=== PATIENT | female | born 1950 | race Caucasian/White ===

== ENCOUNTER 2019-05-18 15:22 | Inpatient (IN) | payer BC, OTHER ==
[~2019-05-18] VITALS: Ht 175.3 cm; Wt 78.7 kg
[2019-05-18] MEDS ORDERED: IPRATROPIUM BROM 0.5 MG/2.5ML INH SOL HHN ONE (16:00)
[2019-05-18] MEDS ORDERED: ALBUTEROL SULF 2.5 MG/0.5ML(0.5%) NEB SOLN HHN ONE (16:00)
[2019-05-18] MEDS ORDERED: methylPREDNISolone SOD SUCC 125 MG/2 ML VL IV ONE (16:00)
[2019-05-18 17:28] LABS: Basophils # (auto) 0 uL; Basophils % (auto) 0.2 % (0.0-2.0); Eosinophils # (auto) 0 uL; Eosinophils % (auto) 0.2 % (0.0-7.0); Hematocrit 43.1 % (36.0-46.0); Hemoglobin 14.3 g/dL (12.2-16.2); Lymphocytes # (auto) 0.9 uL; Lymphocytes % (auto) 16.1 % (10.0-50.0); Mean Corpuscular Hemoglobin 28.8 pg (28.0-32.0); Mean Corpuscular Hgb Conc. 33.3 g/dL (32.0-36.0); Mean Corpuscular Volume 86.4 fL (80.0-100.0); Monocytes # (auto) 0.4 uL; Monocytes % (auto) 8.2 % (0.0-12.0); Neutrophils # (auto) 4.1 uL; Neutrophils % (auto) 75.3 % (37.0-80.0); Nucleated Red Blood Cells % 0.1 %; Platelet Count (auto) 376 10^3/uL (140-450); Red Blood Cells 4.99 10^6/uL (4.0-5.20); Red Cell Distribution Width 14.6 % (11.8-14.3); White Blood Cell 5.5 10^3/uL (4.4-10.8)
[2019-05-18 17:37] LABS: Albumin 3.4 g/dL (3.4-5.0); Calcium 8.9 mg/dL (8.5-10.1)
[2019-05-18 17:42] LABS: BUN/Creatinine Ratio 18.6; Bilirubin, Total 0.4 mg/dL (0.2-1.0); Total Protein 7.5 g/dL (6.4-8.2)
[2019-05-18 17:51] LABS: Potassium 2.7 mmol/L (3.5-5.1)
[2019-05-18] MEDS ORDERED: POTASSIUM CHL 20MEQ/100ML 100 ML IV ONE (18:00)
[2019-05-18] MEDS ORDERED: cefTRIAXone 1GM/50ML D5W 50 ML IV ONE (20:00)
[2019-05-18] MEDS ORDERED: AZITHROMYCIN 500MG/ 250ML 250 ML IV ONE (20:00)
[2019-05-18] MEDS ORDERED: SODIUM CHLORIDE 0.9% 1,000 ML IV SCH (20:18)
[2019-05-18] MEDS ORDERED: LACTULOSE 20Gm/30ML SOLN PO PRN (20:30)
[2019-05-18] MEDS ORDERED: ALBUTEROL SULF 2.5 MG/0.5ML(0.5%) NEB SOLN NEB PRN (20:30)
[2019-05-18] MEDS ORDERED: NITROGLYCERIN 0.4 MG SL TAB SL PRN (20:30)
[2019-05-18] MEDS ORDERED: OSELTAMIVIR 75 MG CAP PO ONE (20:30)
[2019-05-18] MEDS ORDERED: MORPHINE SULF INJ 2 MG/ML SYRINGE 1ML IV PRN (20:30)
[2019-05-18] MEDS ORDERED: POTASSIUM EFFERVESENT TAB 25 MEQ PO ONE (20:45)
[2019-05-18] MEDS ORDERED: PROMETHAZINE HCL 25 MG/ML 1ML IV PRN (20:45)
[2019-05-18] MEDS ORDERED: SOD CHL 0.9%/ KCL 40MEQ 1,000 ML IV SCH (20:45)
[2019-05-18] MEDS ORDERED: traMADol HCL 50 MG TAB PO PRN (20:45)
[2019-05-18] MEDS ORDERED: ONDANSETRON HCL 4 MG/2 ML VIAL IV PRN (20:45)
[2019-05-18] MEDS ORDERED: ACETAMINOPHEN 500 MG TAB PO PRN (20:45)
[2019-05-18 21:58] VITALS: BP 118/78
[2019-05-18] MEDS: methylPREDNISolone SOD SUCC 40 MG/ML VL IV SCH (22:00)
[2019-05-18] MEDS: OSELTAMIVIR 75 MG CAP PO SCH (22:00)
[2019-05-18 23:28] VITALS: BP 139/89
[2019-05-18] MEDS: FAMOTIDINE 20 MG TAB PO SCH (23:37)
[2019-05-18] MEDS ORDERED: LISI40TA PO (23:56)
[2019-05-18] MEDS ORDERED: CHOL20007 PO (23:56)
[2019-05-18] MEDS ORDERED: ALBUAER3 IN (23:56)
[2019-05-18] MEDS ORDERED: MULT-688 PO (23:56)
[2019-05-18] MEDS ORDERED: HYDR-4069 PO (23:56)
[2019-05-18] MEDS ORDERED: HCTZ25T PO (23:56)
[2019-05-18] MEDS ORDERED: MONT10TA34 PO (23:56)
[2019-05-18] MEDS ORDERED: FORM1POW2 INH (23:56)
[2019-05-19] MEDS: IPRATROPIUM BROM 0.5 MG/2.5ML INH SOL NEB SCH ×4 (00:13→18:55)
[2019-05-19] MEDS: ALBUTEROL SULF 2.5 MG/0.5ML(0.5%) NEB SOLN NEB SCH ×4 (00:13→18:56)
[2019-05-19 05:00] VITALS: BP 106/66
[2019-05-19 08:00] LABS: Basophils # (auto) 0 uL; Basophils % (auto) 0.5 % (0.0-2.0); Eosinophils # (auto) 0 uL; Hematocrit 38.4 % (36.0-46.0); Hemoglobin 13.1 g/dL (12.2-16.2); Lymphocytes # (auto) 0.5 uL; Mean Corpuscular Hemoglobin 29.4 pg (28.0-32.0); Mean Corpuscular Volume 86.4 fL (80.0-100.0); Monocytes # (auto) 0.2 uL; Monocytes % (auto) 5.2 % (0.0-12.0); Neutrophils # (auto) 3.3 uL; Neutrophils % (auto) 82.3 % (37.0-80.0); Nucleated Red Blood Cells % 0.1 %; Platelet Count (auto) 339 10^3/uL (140-450); Red Blood Cells 4.45 10^6/uL (4.0-5.20); Red Cell Distribution Width 14.4 % (11.8-14.3); White Blood Cell 4.1 10^3/uL (4.4-10.8)
[2019-05-19 08:20] LABS: Albumin 2.8 g/dL (3.4-5.0); Potassium 3.4 mmol/L (3.5-5.1)
[2019-05-19 08:22] LABS: Bilirubin, Total 0.3 mg/dL (0.2-1.0); Total Protein 6.4 g/dL (6.4-8.2)
[2019-05-19 09:26] VITALS: BP 104/75
[2019-05-19] MEDS: AZITHROMYCIN 500MG/ 250ML 250 ML IV SCH (09:41)
[2019-05-19] MEDS: cefTRIAXone 1GM/50ML D5W 50 ML IV SCH (09:41)
[2019-05-19] MEDS: FAMOTIDINE 20 MG TAB PO SCH ×2 (09:41→21:51)
[2019-05-19] MEDS: methylPREDNISolone SOD SUCC 40 MG/ML VL IV SCH ×2 (09:42→21:50)
[2019-05-19] MEDS: OSELTAMIVIR 75 MG CAP PO SCH ×2 (09:43→09:45)
[2019-05-19] MEDS ORDERED: ENOXAPARIN SOD 40 MG/0.4 ML SYRINGE SC SCH (10:00)
[2019-05-19] MEDS ORDERED: POTASSIUM CHL 20 Meq TABLET PO ONE (11:45)
[2019-05-19] MEDS ORDERED: BUDESONIDE (INHALATION) 0.5 MG/2 ML NEB NEB ONE (11:45)
[2019-05-19 12:00] VITALS: BP 108/75
[2019-05-19] MEDS: HYDROcodone-ACET 5/325MG TAB PO PRN ×2 (13:33→21:19)
[2019-05-19 14:37] LABS: Urine Bacteria NONE SEEN /hpf (None Seen); Urine Blood Negative /uL (Negative); Urine Specific Gravity 1.016 (1.001-1.035); Urine WBC 3 /hpf (0 - 5)
[2019-05-19 17:00] VITALS: BP 129/83
[2019-05-19] MEDS: BUDESONIDE (INHALATION) 0.5 MG/2 ML NEB NEB SCH (18:56)
[2019-05-19 20:05] VITALS: BP 116/77
[2019-05-19 22:00] VITALS: BP 116/66
[2019-05-20] MEDS: IPRATROPIUM BROM 0.5 MG/2.5ML INH SOL NEB SCH ×4 (00:27→19:10)
[2019-05-20] MEDS: ALBUTEROL SULF 2.5 MG/0.5ML(0.5%) NEB SOLN NEB SCH ×4 (00:27→19:10)
[2019-05-20] MEDS: guaiFENesin-DM 100/10mg/5ml SYR PO PRN ×4 (01:24→20:26)
[2019-05-20] MEDS: TEMAZEPAM 15 MG CAP PO PRN (01:25)
[2019-05-20 05:31] VITALS: BP 113/70
[2019-05-20] MEDS: BUDESONIDE (INHALATION) 0.5 MG/2 ML NEB NEB SCH ×2 (06:50→19:10)
[2019-05-20] MEDS: cefTRIAXone 1GM/50ML D5W 50 ML IV SCH (08:24)
[2019-05-20] MEDS: FAMOTIDINE 20 MG TAB PO SCH ×2 (08:25→21:44)
[2019-05-20] MEDS: HYDROcodone-ACET 5/325MG TAB PO PRN ×3 (08:25→21:09)
[2019-05-20 09:00] VITALS: BP 123/70
[2019-05-20] MEDS: AZITHROMYCIN 500MG/ 250ML 250 ML IV SCH (11:19)
[2019-05-20] MEDS: methylPREDNISolone SOD SUCC 40 MG/ML VL IV SCH ×2 (11:19→21:44)
[2019-05-20 13:00] VITALS: BP 106/73
[2019-05-20 17:00] VITALS: BP 131/74
[2019-05-20 20:00] VITALS: BP 116/77
[2019-05-20 22:00] VITALS: BP 119/78
[2019-05-21] MEDS: TEMAZEPAM 15 MG CAP PO PRN (00:38)
[2019-05-21 05:19] VITALS: BP 110/64
[2019-05-21] MEDS: IPRATROPIUM BROM 0.5 MG/2.5ML INH SOL NEB SCH ×4 (06:49→18:41)
[2019-05-21] MEDS: ALBUTEROL SULF 2.5 MG/0.5ML(0.5%) NEB SOLN NEB SCH ×4 (06:49→18:41)
[2019-05-21] MEDS: BUDESONIDE (INHALATION) 0.5 MG/2 ML NEB NEB SCH ×2 (06:50→18:41)
[2019-05-21 08:38] VITALS: BP 118/76
[2019-05-21] MEDS: cefTRIAXone 1GM/50ML D5W 50 ML IV SCH (09:51)
[2019-05-21] MEDS: AZITHROMYCIN 500MG/ 250ML 250 ML IV SCH (09:52)
[2019-05-21] MEDS: FAMOTIDINE 20 MG TAB PO SCH ×2 (09:52→22:00)
[2019-05-21] MEDS: methylPREDNISolone SOD SUCC 40 MG/ML VL IV SCH ×2 (09:52→22:00)
[2019-05-21] MEDS: HYDROcodone-ACET 5/325MG TAB PO PRN ×3 (09:52→22:04)
[2019-05-21] MEDS: guaiFENesin-DM 100/10mg/5ml SYR PO PRN ×2 (09:54→18:56)
[2019-05-21 14:34] VITALS: BP 117/69
[2019-05-21 16:58] VITALS: BP 119/75
[2019-05-21] MEDS ORDERED: AZITHROMYCIN 250 MG TAB PO ONE ×2 (17:30→22:00)
[2019-05-21 22:00] VITALS: BP 118/70
[2019-05-21] MEDS: MONTELUKAST SODIUM 10 MG TAB PO SCH (22:00)
[2019-05-22] MEDS: ALBUTEROL SULF 2.5 MG/0.5ML(0.5%) NEB SOLN NEB SCH ×4 (00:23→18:24)
[2019-05-22] MEDS: IPRATROPIUM BROM 0.5 MG/2.5ML INH SOL NEB SCH ×4 (00:23→18:24)
[2019-05-22] MEDS: TEMAZEPAM 15 MG CAP PO PRN (01:26)
[2019-05-22 01:48] VITALS: BP 118/70
[2019-05-22 05:51] VITALS: BP 122/73
[2019-05-22] MEDS: BUDESONIDE (INHALATION) 0.5 MG/2 ML NEB NEB SCH ×2 (06:37→18:24)
[2019-05-22] MEDS: cefTRIAXone 1GM/50ML D5W 50 ML IV SCH (08:57)
[2019-05-22] MEDS: methylPREDNISolone SOD SUCC 40 MG/ML VL IV SCH (08:58)
[2019-05-22] MEDS: AZITHROMYCIN 250 MG TAB PO SCH (08:58)
[2019-05-22] MEDS: FAMOTIDINE 20 MG TAB PO SCH ×2 (08:58→21:37)
[2019-05-22 09:00] VITALS: BP 111/70
[2019-05-22] MEDS ORDERED: FLUCONAZOLE 100 MG TAB PO ONE (11:00)
[2019-05-22] MEDS: HYDROcodone-ACET 5/325MG TAB PO PRN ×2 (12:20→20:01)
[2019-05-22 13:00] VITALS: BP 133/80
[2019-05-22 17:00] VITALS: BP 152/88
[2019-05-22] MEDS: guaiFENesin-DM 100/10mg/5ml SYR PO PRN (20:01)
[2019-05-22] MEDS: MONTELUKAST SODIUM 10 MG TAB PO SCH (21:37)
[2019-05-22 22:00] VITALS: BP 119/75
[2019-05-23] MEDS: ALBUTEROL SULF 2.5 MG/0.5ML(0.5%) NEB SOLN NEB SCH ×3 (00:26→12:09)
[2019-05-23] MEDS: IPRATROPIUM BROM 0.5 MG/2.5ML INH SOL NEB SCH ×3 (00:26→12:09)
[2019-05-23] MEDS: TEMAZEPAM 15 MG CAP PO PRN (01:27)
[2019-05-23 05:27] VITALS: BP 110/60
[2019-05-23] MEDS: BUDESONIDE (INHALATION) 0.5 MG/2 ML NEB NEB SCH (06:35)
[2019-05-23 07:26] VITALS: BP 146/79
[2019-05-23 08:00] VITALS: BP 121/70
[2019-05-23] MEDS: cefTRIAXone 1GM/50ML D5W 50 ML IV SCH (09:22)
[2019-05-23] MEDS ORDERED: FLUCONAZOLE 100 MG TAB PO SCH (10:00)
[2019-05-23] MEDS ORDERED: predniSONE 20 MG TAB PO SCH (10:00)
[2019-05-23] MEDS ORDERED: SULFAMETHOX W/TRIMETH(800/160MG) DS TAB PO ONE (10:30)
[2019-05-23] MEDS: FAMOTIDINE 20 MG TAB PO SCH (10:30)
[2019-05-23] MEDS: AZITHROMYCIN 250 MG TAB PO SCH (10:30)
[2019-05-23 12:00] VITALS: BP 138/74
[2019-05-23] MEDS ORDERED: LEVOFLOXACIN 250 MG TAB PO ONE (15:45)
[2019-05-24] MEDS ORDERED: LEVOFLOXACIN 250 MG TAB PO SCH (10:00)
== END 2019-05-23 16:15 | disposition home or self-care (01) | DRG 177 ==
LOC: ER 15:22 → TELE 15:23 → TELE-CENTR 22:55 → CENTRAL 05-19 12:03
PROVIDERS: ADMIT Internal Medicine; ATTEND Internal Medicine
DX: J15.6 Pneumonia due to other Gram-negative bacteria (principal); J96.20 Acute and chronic respiratory failure, unspecified whether with hypoxia or hypercapnia; E72.51 Non-ketotic hyperglycinemia; J44.0 Chronic obstructive pulmonary disease with (acute) lower respiratory infection; J44.1 Chronic obstructive pulmonary disease with (acute) exacerbation; R73.9 Hyperglycemia, unspecified; I10 Essential (primary) hypertension; E87.6 Hypokalemia; Z87.891 Personal history of nicotine dependence; Z90.49 Acquired absence of other specified parts of digestive tract
CPT/HCPCS: 36415; 36600; 71046; 80053; 81001; 82805; 83605; 83880; 84484; 85025; 87040; 87070; 87077; 87186; 87205; 87804; 93306; 94640; 94644; 97116; 97530; 99291; G0378; J0696; J2405; J3480